=== PATIENT | female | born 1985 ===

== ENCOUNTER → 2016-10-14 | Outpatient (CLI) | payer OTHER, BC ==
--- NOTE | 2016-10-15 19:16 | CT ---
EXAM DATE: 10/14/16 PATIENT'S AGE: 30 Patient: PHILIP DWYER Facility: [place], [place] Site . Site : 1985 Study: CT Sinus WO CONT [id number] 1:54:15 PM Ordering Physician: Gerson Bergeron Final Report: INDICATION: Chronic sinusitis. Technique: Computed tomography of the paranasal sinuses was performed without intravenous contrast. Comparison: None Findings: The frontal sinuses appear hypoplastic. A mucous retention cyst is seen within the posterior left maxillary sinus, which does not appear obstructive. Remainder the paranasal sinuses appear well-aerated. No air-fluid levels are present. There is mild coaptation of the left infundibulum. The nasal septum is mildly deviated to the right. The nasal cavity appears well aerated. The temporomandibular joints articulate normally. The mastoid air cells appear well- aerated. The orbital contents are grossly unremarkable. Bilateral palatine tonsillar calcifications are consistent with remote infection. Impression : 1. A mucous retention cyst is seen within the posterior left maxillary sinus, which does not appear obstructive. Remainder the paranasal sinuses appear well- aerated. 2. No air-fluid levels are present. Dictated by Dl Rodriguez MD @ Oct 15 2016 1:28PM (Electronic Signature) Report Signed by Proxy and Original Signed Document filed in the Medical Record. MTDD
== END ==
LOC: MW.DI 12:48
PROVIDERS: ATTEND Otolaryngology Otolaryngology/Facial Plastic Surgery
DX: J32.9 Chronic sinusitis, unspecified (principal)
CPT/HCPCS: 70486; 70486-26

== ENCOUNTER 2020-05-23 11:20 | Emergency (ER) | payer OTHER ==
[2020-05-23] MEDS ORDERED: Sodium Chloride 0.9% 10 ML SDV IV PRN (11:30)
[2020-05-23] MEDS ORDERED: Sodium Chloride 0.9% 10 ML Syringe FLUSH PRN (11:30)
[2020-05-23] MEDS ORDERED: Sodium Chloride 0.9% 2.5 ML Syringe FLUSH PRN (11:30)
--- NOTE | 2020-05-23 11:37 | EDM.PDOC ---
ED HPI GENERAL MEDICAL PROBLEM - General Chief Complaint: Neuro Symptoms/Deficits Stated Complaint: MEDICAL CLEARANCE Time Seen by Provider: 05/23/20 11:22 - History of Present Illness INITIAL COMMENTS - FREE TEXT/NARRATIVE: History of present illness: Patient presents with an acute altered mental status that began approximately 1030 this morning while at work. She seems to be confused and unable to find the correct words or interact appropriately she has never had anything like this before she denies any headache no chest pain or trouble breathing she is brought to the emergency department by her who is concerned that she is definitely confused and not acting like herself. She has a history of depression and takes Effexor no other medical problems no prior incidence of this type nothing seems to make it better or worse blood glucose on arrival to the ED was 103 stroke code was called Review of systems: As per history of present illness and below otherwise all systems reviewed and negative. Past medical history: As per history of present illness and as reviewed below otherwise noncontributory. Surgical history: As per history of present illness and as reviewed below otherwise noncontributory. Social history: No reported history of drug or alcohol abuse. Family history: As per history of present illness and as reviewed below otherwise noncontributory. Physical exam: HEENT: Atraumatic, normocephalic, pupils reactive, negative for conjunctival pallor or scleral icterus, mucous membranes moist, throat clear, neck supple, nontender, trachea midline. Lungs: Clear to auscultation, breath sounds equal bilaterally, chest nontender. Heart: S1S2, regular, negative for clicks, rubs, or JVD. Abdomen: Soft, nondistended, nontender. Negative for masses or hepatosplenomegaly. Negative for costovertebral tenderness. Pelvis: Stable nontender. Genitourinary: Deferred. Rectal: Deferred. Extremities: Atraumatic, negative for cords or calf pain. Neurovascular unremarkable. Neuro: Awake, alert, oriented. Cranial nerves II through XII unremarkable. Cerebellum unremarkable. Motor and sensory unremarkable throughout. Exam nonfocal. While she is alert and oriented she is answering with unusual answers for instance when asked what day it is she states that it is homecoming while it is homecoming but the appropriate answer would have been Tuesday. Slow to answer questions. There is a mild right pronator drift Diagnostics: [] Therapeutics: [] Impression: Altered mental status possible acute CVA [] Plan: Stroke code reevaluate admit to the hospital [] Definitive disposition and diagnosis as appropriate pending reevaluation and review of above. - Related Data Allergies Allergy/AdvReac Type Severity Reaction Status Date / Time No Known Allergies Allergy Verified 05/23/20 11:29 Home Meds: Home Meds Venlafaxine [Effexor] 75 mg PO DAILY 05/23/20 [History] ED ROS GENERAL - Review of Systems Review Of Systems: See Below ED EXAM, GENERAL - Physical Exam Exam: See Below #1 Interpretation EKG Interpretation Comments: EKG is normal sinus rhythm rate of 80 bpm no specific ischemia normal axis read and interpreted by me Course - Vital Signs Text/Narrative:: At 145 I discussed the case with Dr. Gamboa where she will admit the patient telemetry obs CT CT angio were negative patient is somewhat improving but still seems to be not quite right cognitively agrees. She will be admitted to the hospital for further evaluation. Last Recorded V/S: Last Vital Signs Temp 36.1 C 05/23/20 11:27 Pulse 79 05/23/20 12:52 Resp 16 05/23/20 12:52 BP 124/68 05/23/20 12:52 Pulse Ox 98 05/23/20 12:52 - Orders/Labs/Meds Orders: Active Orders 24 hr Category Date Time Status Patient Status [ADT] Routine ADT 05/23/20 13:49 Active Assess Neurological Status [RC] ASDIRECTED Care 05/23/20 11:30 Active Bedrest [RC] ASDIRECTED Care 05/23/20 11:30 Active Cardiac Monitoring [RC] . DIRECTED Care 05/23/20 11:30 Active EKG Documentation Completion [RC] STAT Care 05/23/20 11:30 Active Height and Weight [RC] UPON Care 05/23/20 11:30 Active Initiate Acute Stroke Protocol [RC] STAT Care 05/23/20 11:30 Active NIH Stroke Scale [RC] ASDIRECTED Care 05/23/20 11:30 Active Nursing Bedside Swallow Screen [RC] ASDIRECTED Care 05/23/20 11:30 Active Oxygen Therapy [RC] ASDIRECTED Care 05/23/20 11:30 Active Stroke Education, General [RC] Click to Edit Care 05/23/20 11:30 Active Vital Signs [RC] Q1H Care 05/23/20 11:30 Active Brain w wo Cont [MR] Stat Exams 05/23/20 13:47 Ordered Aspirin Med 05/23/20 13:58 Once 324 mg PO ONETIME ONE Sodium Chloride 0.9% [Saline Flush] Med 05/23/20 11:30 Active 10 ml FLUSH ASDIRECTED PRN Sodium Chloride 0.9% [Saline Flush] Med 05/23/20 11:30 Active 2.5 ml FLUSH ASDIRECTED PRN Peripheral IV Insertion Adult [OM.PC] Stat Oth 05/23/20 11:30 Ordered Peripheral IV Insertion Adult [OM.PC] Stat Oth 05/23/20 11:30 Ordered Resuscitation Status Stat Resus Stat 05/23/20 11:30 Ordered Medication Orders Sodium Chloride (Saline Flush) 10 ml FLUSH ASDIRECTED PRN PRN Reason: Keep Vein Open Last Admin: 05/23/20 12:06 Dose: 10 ml Documented by: [id number] Sodium Chloride (Saline Flush) 2.5 ml FLUSH ASDIRECTED PRN PRN Reason: Keep Vein Open Last Admin: 05/23/20 12:06 Dose: 2.5 ml Documented by: [id number] Labs: Laboratory Tests 05/23/20 05/23/20 05/23/20 Range/Units 11:56 12:05 12:05 WBC 8.93 (4.0-11.0) K/uL RBC 3.85 L (4.30-5.90) M/uL Hgb 12.5 (12.0-16.0) g/dL Hct 36.9 (36.0-46.0) % MCV 95.8 (80.0-98.0) fL MCH 32.5 H (27.0-32.0) pg MCHC 33.9 (31.0-37.0) g/dL RDW Std Deviation 41.9 (28.0-62.0) fl RDW Coeff of Genaro 12 (11.0-15.0) % Plt Count 335 (150-400) K/uL MPV 9.40 (7.40-12.00) fL Neut % (Auto) 59.1 (48.0-80.0) % Lymph % (Auto) 30.1 (16.0-40.0) % [place] % (Auto) 7.4 (0.0-15.0) % Eos % (Auto) 2.8 (0.0-7.0) % Baso % (Auto) 0.6 (0.0-1.5) % Neut # (Auto) 5.3 (1.4-5.7) K/uL Lymph # (Auto) 2.7 H (0.6-2.4) K/uL Z[place]ata # (Auto) 0.7 (0.0-0.8) K/uL Eos # (Auto) 0.3 (0.0-0.7) K/uL Baso # (Auto) 0.1 (0.0-0.1) K/uL Nucleated RBC % 0.0 /100WBC Nucleated RBCs # 0 K/uL INR 0.98 APTT 24.3 (18.6-31.3) SEC Sodium (136-145) mmol/L Potassium (3.5-5.1) mmol/L Chloride (98-107) mmol/L Carbon Dioxide (21.0-32.0) mmol/L BUN (7.0-18.0) mg/dL Creatinine (0.6-1.0) mg/dL Est Cr Clr Drug Dosing mL/min Estimated GFR (MDRD) ml/min Glucose (74-106) mg/dL Calcium (8.5-10.1) mg/dL Total Bilirubin (0.2-1.0) mg/dL AST (15-37) IU/L ALT (14-63) IU/L Alkaline Phosphatase (46-116) U/L Troponin I (0.000-0.056) ng/mL Total Protein (6.4-8.2) g/dL Albumin (3.4-5.0) g/dL Globulin (2.6-4.0) g/dL Albumin/Globulin Ratio (0.9-1.6) TSH 3rd Generation (0.36-3.74) uIU/mL HCG, Qual (NEG) Urine Opiates Screen NEGATIVE (NEGATIVE) Ur Oxycodone Screen NEGATIVE (NEGATIVE) Urine Methadone Screen NEGATIVE (NEGATIVE) Ur Barbiturates Screen NEGATIVE (NEGATIVE) Ur Phencyclidine Scrn NEGATIVE (NEGATIVE) Ur Amphetamine Screen NEGATIVE (NEGATIVE) U Methamphetamines Scrn NEGATIVE (NEGATIVE) U Benzodiazepines Scrn NEGATIVE (NEGATIVE) U Cocaine Metab Screen NEGATIVE (NEGATIVE) U Marijuana (THC) Screen NEGATIVE (NEGATIVE) Ethyl Alcohol mg/dL 05/23/20 05/23/20 Range/Units 12:05 12:05 WBC (4.0-11.0) K/uL RBC (4.30-5.90) M/uL Hgb (12.0-16.0) g/dL Hct (36.0-46.0) % MCV (80.0-98.0) fL MCH (27.0-32.0) pg MCHC (31.0-37.0) g/dL RDW Std Deviation (28.0-62.0) fl RDW Coeff of Genaro (11.0-15.0) % Plt Count (150-400) K/uL MPV (7.40-12.00) fL Neut % (Auto) (48.0-80.0) % Lymph % (Auto) (16.0-40.0) % Zapata % (Auto) (0.0-15.0) % Eos % (Auto) (0.0-7.0) % Baso % (Auto) (0.0-1.5) % Neut # (Auto) (1.4-5.7) K/uL Lymph # (Auto) (0.6-2.4) K/uL Zapata # (Auto) (0.0-0.8) K/uL Eos # (Auto) (0.0-0.7) K/uL Baso # (Auto) (0.0-0.1) K/uL Nucleated RBC % /100WBC Nucleated RBCs # K/uL INR APTT (18.6-31.3) SEC Sodium 141 (136-145) mmol/L Potassium 3.7 (3.5-5.1) mmol/L Chloride 105 (98-107) mmol/L Carbon Dioxide 28.3 (21.0-32.0) mmol/L BUN 13 (7.0-18.0) mg/dL Creatinine 1.0 (0.6-1.0) mg/dL Est Cr Clr Drug Dosing 84.10 mL/min Estimated GFR (MDRD) > 60.0 ml/min Glucose 102 (74-106) mg/dL Calcium 9.1 (8.5-10.1) mg/dL Total Bilirubin 0.2 (0.2-1.0) mg/dL AST 17 (15-37) IU/L ALT 22 (14-63) IU/L Alkaline Phosphatase 71 (46-116) U/L Troponin I < 0.050 (0.000-0.056) ng/mL Total Protein 7.1 (6.4-8.2) g/dL Albumin 4.0 (3.4-5.0) g/dL Globulin 3.1 (2.6-4.0) g/dL Albumin/Globulin Ratio 1.3 (0.9-1.6) TSH 3rd Generation 1.21 (0.36-3.74) uIU/mL HCG, Qual NEGATIVE (NEG) Urine Opiates Screen (NEGATIVE) Ur Oxycodone Screen (NEGATIVE) Urine Methadone Screen (NEGATIVE) Ur Barbiturates Screen (NEGATIVE) Ur Phencyclidine Scrn (NEGATIVE) Ur Amphetamine Screen (NEGATIVE) U Methamphetamines Scrn (NEGATIVE) U Benzodiazepines Scrn (NEGATIVE) U Cocaine Metab Screen (NEGATIVE) U Marijuana (THC) Screen (NEGATIVE) Ethyl Alcohol < 3.0 mg/dL Meds: Medications Generic Name Dose Route Start Last Admin Trade Name Freq PRN Reason Stop Dose Admin Sodium Chloride 10 ml 05/23/20 11:30 05/23/20 12:06 Saline Flush FLUSH 10 ml ASDIRECTED PRN Administration Keep Vein Open Sodium Chloride 2.5 ml 05/23/20 11:30 05/23/20 12:06 Saline Flush FLUSH 2.5 ml ASDIRECTED PRN Administration Keep Vein Open Discontinued Medications Generic Name Dose Route Start Last Admin Trade Name Freq PRN Reason Stop Dose Admin Iopamidol 100 ml 05/23/20 12:56 05/23/20 12:57 Isovue Multipack-370 (76%) IVPUSH 05/23/20 12:57 100 ml ONETIME ONE Administration Lorazepam 1 mg 05/23/20 12:05 05/23/20 12:08 Ativan IVPUSH 05/23/20 12:06 1 mg ONETIME ONE Administration Lorazepam Confirm 05/23/20 12:07 05/23/20 12:10 Ativan Administered 05/23/20 12:08 Not Given Dose 2 mg .ROUTE .STK-MED ONE Sodium Chloride 10 ml 05/23/20 11:30 Normal Saline IV ASDIRECTED PRN IV Use Departure - Departure Time of Disposition: 13:45 Disposition: Refer to Observation Condition: Good Clinical Impression: Altered mental status - Discharge Information *PRESCRIPTION DRUG MONITORING PROGRAM REVIEWED*: Not Applicable *COPY OF PRESCRIPTION DRUG MONITORING REPORT IN PATIENT GILDA: Not Applicable Referrals: PCP,None [Primary Care Provider] - Forms: ED Department Discharge Sepsis Event Note (ED) - Evaluation Sepsis Screening Result: No Definite Risk - Focused Exam Vital Signs: Vital Signs Temp Pulse Resp BP Pulse Ox 05/23/20 12:52 79 16 124/68 98 05/23/20 11:27 36.1 C 76 16 131/80 97 - My Orders Last 24 Hours: My Active Orders 05/23/20 11:30 Assess Neurological Status [RC] ASDIRECTED Bedrest [RC] ASDIRECTED Cardiac Monitoring [RC] . DIRECTED EKG Documentation Completion [RC] STAT Height and Weight [RC] UPON Initiate Acute Stroke Protocol [RC] STAT NIH Stroke Scale [RC] ASDIRECTED Nursing Bedside Swallow Screen [RC] ASDIRECTED Oxygen Therapy [RC] ASDIRECTED Stroke Education, General [RC] Click to Edit Vital Signs [RC] Q1H Sodium Chloride 0.9% [Saline Flush] 10 ml FLUSH ASDIRECTED PRN Sodium Chloride 0.9% [Saline Flush] 2.5 ml FLUSH ASDIRECTED PRN Peripheral IV Insertion Adult [OM.PC] Stat Peripheral IV Insertion Adult [OM.PC] Stat Resuscitation Status Stat 05/23/20 13:47 Brain w wo Cont [MR] Stat 05/23/20 13:49 Patient Status [ADT] Routine 05/23/20 13:58 Aspirin 324 mg PO ONETIME ONE - Assessment/Plan Last 24 Hours: My Active Orders 05/23/20 11:30 Assess Neurological Status [RC] ASDIRECTED Bedrest [RC] ASDIRECTED Cardiac Monitoring [RC] . DIRECTED EKG Documentation Completion [RC] STAT Height and Weight [RC] UPON Initiate Acute Stroke Protocol [RC] STAT NIH Stroke Scale [RC] ASDIRECTED Nursing Bedside Swallow Screen [RC] ASDIRECTED Oxygen Therapy [RC] ASDIRECTED Stroke Education, General [RC] Click to Edit Vital Signs [RC] Q1H Sodium Chloride 0.9% [Saline Flush] 10 ml FLUSH ASDIRECTED PRN Sodium Chloride 0.9% [Saline Flush] 2.5 ml FLUSH ASDIRECTED PRN Peripheral IV Insertion Adult [OM.PC] Stat Peripheral IV Insertion Adult [OM.PC] Stat Resuscitation Status Stat 05/23/20 13:47 Brain w wo Cont [MR] Stat 05/23/20 13:49 Patient Status [ADT] Routine 05/23/20 13:58 Aspirin 324 mg PO ONETIME ONE
--- NOTE | 2020-05-23 12:02 | CT ---
INDICATION: Clinical signs and symptoms of stroke COMPARISON: Minute portions of an MRI dated September 09, 2017. TECHNIQUE: CT examination of the head was performed as axial sections without intravenous contrast. Images were obtained from the vertex of the skull through the skull base. Please note that all CT scans at this facility use dose modulation, iterative reconstruction, and/or weight-based dosing when appropriate to reduce radiation dose to as low as reasonably achievable. FINDINGS: The brain shows no sign of mass lesion, mass effect, hemorrhage, or edema. The ventricles and sulci are normal in appearance for the patient`s age. The visualized portions of the orbits are normal in appearance. The osseous structures are normal in their appearance with no sign of abnormality in the skull base or calvarium. IMPRESSION: Normal unenhanced head CT. Please note that all CT scans at this facility use dose modulation, iterative reconstruction, and/or weight-based dosing when appropriate to reduce radiation dose to as low as reasonably achievable. Dictated by Rob Jin MD @ May 23 2020 11:58AM Signed by Dr. Rob Jin @ May 23 2020 12:00PM
[2020-05-23] MEDS ORDERED: LORazepam 2 MG/ML SDV IVPUSH ONE (12:05)
[2020-05-23] MEDS ORDERED: LORazepam 2 MG/ML SDV ONE (12:07)
[2020-05-23] MEDS ORDERED: Iopamidol 755 MG/ML 500 ML Multipack Bottle IVPUSH ONE (12:56)
[2020-05-23 12:59] LABS: BLOOD UREA NITROGEN,BUN 13 mg/dL (7.0-18.0); CARBON DIOXIDE,CO2 28.3 mmol/L (21.0-32.0); CHLORIDE,CL 105 mmol/L (98-107); GLUCOSE RANDOM 102 mg/dL (74-106); POTASSIUM,K 3.7 mmol/L (3.5-5.1); SODIUM,NA 141 mmol/L (136-145)
--- NOTE | 2020-05-23 13:22 | CT ---
CT HEAD DATE: 05/23/2020 CLINICAL HISTORY: Patient with focal neurological deficits. TECHNIQUE: Standard CT scanning of the head was performed. COMPARISON: None. FINDINGS: There is no intracranial hemorrhage. The leach matter-white matter differentiation is intact. The size of the ventricular system is normal for age. There is no mass effect or midline shift. The calvarium is unremarkable. The orbits are unremarkable. The paranasal sinuses demonstrate mild left maxillary sinus mucosal thickening. The mastoid air cells are unremarkable. The soft tissues are unremarkable. IMPRESSION: Normal head CT. Please note that all CT scans at this facility use dose modulation, iterative reconstruction, and/or weight-based dosing when appropriate to reduce radiation dose to as low as reasonably achievable. Dictated by: Salena Peña MD @ 05/23/2020 13:20:10 (Electronically Signed)
--- NOTE | 2020-05-23 13:26 | CT ---
CT ANGIOGRAM HEAD AND NECK DATE: 05/23/2020 CLINICAL HISTORY: Patient with focal neurological deficits. TECHNIQUE: Standard helical CT image acquisition through the head and neck was performed after intravenous contrast bolus enhancement. Multiplanar reconstructed images were performed and interpreted. COMPARISON: CT same day. FINDINGS: The origins of the great vessels from the aortic arch are patent. The origin of the right vertebral artery is patent. The origin of the left vertebral artery is patent. The common carotid arteries are patent There is no stenosis at the origin of the right internal carotid artery. There is no stenosis at the origin of the left internal carotid artery. The rest of the cervical segments of the internal carotid arteries are patent up to their intracranial segments. The intracranial segments of the internal carotid arteries are patent. The vertebral arteries are codominant. The cervical segments of the vertebral arteries are patent. The intracranial segments of the vertebral arteries are patent. The middle cerebral arteries are normal without aneurysm or proximal occlusion identified. The anterior cerebral arteries are normal without aneurysm or proximal occlusion identified. The anterior communicating artery is well visualized and appears normal. The basilar artery is normal without aneurysm or occlusion. The posterior cerebral arteries are normal without aneurysm or proximal occlusion. There is normal opacification of major intracranial venous structures. The visualized lung apices are unremarkable The thyroid gland is unremarkable. The soft tissues of the neck are unremarkable. There are degenerative changes in the cervical spine. IMPRESSION: Normal CT angiogram of the head and neck. Please note that all CT scans at this facility use dose modulation, iterative reconstruction, and/or weight-based dosing when appropriate to reduce radiation dose to as low as reasonably achievable. Dictated by: Salena Peña MD @ 05/23/2020 13:25:04 (Electronically Signed)
--- NOTE | 2020-05-23 13:40 | CR ---
INDICATION: Acute stroke COMPARISON: None TECHNIQUE: Single-view portable AP upright chest radiograph FINDINGS: TUBES AND LINES: None. HEART AND MEDIASTINUM: The heart size is normal. The mediastinal contour appears normal for patient age. LUNGS AND PLEURAL SPACES: The lungs appear normal.There pleural spaces are unremarkable. OSSEOUS STRUCTURES: Age-appropriate appearance. No acute focal finding. IMPRESSION: No evidence of active pulmonary disease. Dictated by Rob Jin MD @ May 23 2020 1:39PM Signed by Dr. Rob Jin @ May 23 2020 1:40PM
[2020-05-23] MEDS ORDERED: Aspirin 81 MG Tab.Chew PO ONE (13:58)
== END 2020-05-23 15:00 | disposition other institution (70) ==
LOC: MW.ED 11:20
DX: R41.82 Altered mental status, unspecified (principal); F32.9 Major depressive disorder, single episode, unspecified; Z79.899 Other long term (current) drug therapy
CPT/HCPCS: 70450; 70496; 70498; 71045; 80053; 80305; 80307; 82962; 84443; 84484; 84703; 85025; 85610; 85730; 93005; 96374; 99285; J2060; Q9967; 93010

== ENCOUNTER 2020-05-23 15:55 | Emergency (ER) | payer OTHER ==
--- NOTE | 2020-05-23 17:20 | EDM.PDOC ---
ED HPI GENERAL MEDICAL PROBLEM - General Chief Complaint: Neuro Symptoms/Deficits Stated Complaint: POSSIBLE STROKE VICTIM Time Seen by Provider: 05/23/20 16:13 - History of Present Illness INITIAL COMMENTS - FREE TEXT/NARRATIVE: History of present illness: Patient literally was admitted to the hospital and the hospitalist was here to see them when they decided they wanted to leave they were gone for a total of 30 minutes when they returned with the in 1 to be readmitted. The patient seems to be anxious and is frustrated and does not want to stay however she is obviously altered still and the wanted her to be further evaluated as planned. She is now agreeing to stay in the hospital no new complaints no new events see prior note for details Review of systems: As per history of present illness and below otherwise all systems reviewed and negative. Past medical history: As per history of present illness and as reviewed below otherwise noncontributory. Surgical history: As per history of present illness and as reviewed below otherwise noncontributory. Social history: No reported history of drug or alcohol abuse. Family history: As per history of present illness and as reviewed below otherwise noncontributory. Physical exam: HEENT: Atraumatic, normocephalic, pupils reactive, negative for conjunctival pallor or scleral icterus, mucous membranes moist, throat clear, neck supple, nontender, trachea midline. Lungs: Clear to auscultation, breath sounds equal bilaterally, chest nontender. Heart: S1S2, regular, negative for clicks, rubs, or JVD. Abdomen: Soft, nondistended, nontender. Negative for masses or hepatosplenomegaly. Negative for costovertebral tenderness. Pelvis: Stable nontender. Genitourinary: Deferred. Rectal: Deferred. Extremities: Atraumatic, negative for cords or calf pain. Neurovascular unremarkable. Neuro: Awake, alert, oriented. Cranial nerves II through XII unremarkable. Cerebellum unremarkable. Motor and sensory unremarkable throughout. Exam nonfocal. Confused inappropriate answers to questions no ataxia there was a mild pronator drift on previous exam on the right Diagnostics: [] Therapeutics: [] Impression: Mental status rule out CVA [] Plan: Admit as planned priorly [] Definitive disposition and diagnosis as appropriate pending reevaluation and review of above. - Related Data Allergies Allergy/AdvReac Type Severity Reaction Status Date / Time No Known Allergies Allergy Verified 05/23/20 16:45 Home Meds: Home Meds Venlafaxine [Effexor] 75 mg PO DAILY 05/23/20 [History] Past Medical History - Past Health History Medical/Surgical History: Denies Medical/Surgical History Psychiatric History: Reports: Depression - Infectious Disease History Infectious Disease History: Reports: None Social & Family History - Family History Family Medical History: Noncontributory - Tobacco Use Tobacco Use Status *Q: Never Tobacco User - Caffeine Use Caffeine Use: Reports: Coffee - Recreational Drug Use Recreational Drug Use: No ED ROS GENERAL - Review of Systems Review Of Systems: See Below ED EXAM, GENERAL - Physical Exam Exam: See Below Course - Vital Signs Last Recorded V/S: Last Vital Signs Temp 36.6 C 05/23/20 16:46 Pulse 88 05/23/20 16:46 Resp 18 05/23/20 16:46 BP 147/96 H 05/23/20 16:46 Pulse Ox 98 05/23/20 16:46 - Orders/Labs/Meds Orders: Active Orders 24 hr Category Date Time Status Patient Status [ADT] Routine ADT 05/23/20 17:17 Ordered Brain wo Cont [MR] Stat Exams 05/23/20 17:16 Ordered CORONAVIRUS COVID-19 PCR [facility] Stat Lab 05/23/20 16:32 Ordered Departure - Departure Time of Disposition: 17:19 Disposition: Refer to Observation Condition: Good Clinical Impression: Altered mental status - Discharge Information *PRESCRIPTION DRUG MONITORING PROGRAM REVIEWED*: Not Applicable *COPY OF PRESCRIPTION DRUG MONITORING REPORT IN PATIENT GILDA: Not Applicable Referrals: PCP,None [Primary Care Provider] - Sepsis Event Note (ED) - Evaluation Sepsis Screening Result: No Definite Risk - Focused Exam Vital Signs: Vital Signs Temp Pulse Resp BP Pulse Ox 05/23/20 16:46 36.6 C 88 18 147/96 H 98 - My Orders Last 24 Hours: My Active Orders 05/23/20 16:32 CORONAVIRUS COVID-19 PCR PHL Stat 05/23/20 17:16 Brain wo Cont [MR] Stat 05/23/20 17:17 Patient Status [ADT] Routine - Assessment/Plan Last 24 Hours: My Active Orders 05/23/20 16:32 CORONAVIRUS COVID-19 PCR PH[facility] Stat 05/23/20 17:16 Brain wo Cont [MR] Stat 05/23/20 17:17 Patient Status [ADT] Routine
[2020-05-23] MEDS ORDERED: Acetaminophen 325 MG Tab PO PRN (17:43)
[2020-05-23] MEDS ORDERED: Albuterol/Ipratropium 3.0-0.5 MG/3 ML Neb Soln NEB PRN (17:43)
[2020-05-23] MEDS ORDERED: LORazepam 2 MG/ML SDV IVPUSH PRN ×2 (17:46→17:47)
[2020-05-23] MEDS ORDERED: Gadobenate Dimeglumine 529 MG/ML 20 ML SDV IVPUSH STA (18:01)
[2020-05-23 18:20] LABS: HEMOGLOBIN A1C 5.6 % (4.5-6.2)
--- NOTE | 2020-05-23 19:07 | PCM.HP.2 ---
H&P History of Present Illness - General Date of Service: 05/23/20 Admit Problem/Dx: Admission Diagnosis/Problem Admission Diagnosis/Problem Altered mental status - Related Data Allergies/Adverse Reactions: Allergies Allergy/AdvReac Type Severity Reaction Status Date / Time No Known Allergies Allergy Verified 05/23/20 16:45 Home Medications: Home Meds Venlafaxine [Effexor] 75 mg PO DAILY 05/23/20 [History] Past Medical History - Past Health History Medical/Surgical History: Denies Medical/Surgical History Psychiatric History: Reports: Depression - Infectious Disease History Infectious Disease History: Reports: None Social & Family History - Family History Family Medical History: Noncontributory - Tobacco Use Tobacco Use Status *Q: Never Tobacco User - Caffeine Use Caffeine Use: Reports: Coffee - Recreational Drug Use Recreational Drug Use: No Exam - Vital Signs Vital Signs: Last Vital Signs Temp 36.1 C 05/23/20 18:42 Pulse 76 05/23/20 18:42 Resp 14 05/23/20 18:42 BP 146/77 H 05/23/20 18:42 Pulse Ox 99 05/23/20 18:42 Weight: 90.718 kg - Patient Data Lab Results Last 24 hrs: Laboratory Results - last 24 hr 05/23/20 05/23/20 05/23/20 Range/Units 12:05 12:05 16:59 Hemoglobin A1c 5.6 (4.5-6.2) % Triglycerides 159 (0-200) mg/dL Cholesterol 155 (50-200) mg/dL LDL Cholesterol, Calc 86 (60-180) mg/dL VLDL Cholesterol 31 (5-55) mg/dL HDL Cholesterol 37 L (40-60) mg/dL Cholesterol/HDL Ratio 4.2 (3.3-6.0) TSH 3rd Generation 1.18 (0.36-3.74) uIU/mL SARS-CoV-2 RNA (YONI) NEGATIVE (NEGATIVE) Sepsis Event Note - Evaluation Sepsis Screening Result: No Definite Risk - Focused Exam Vital Signs: Vital Signs Temp Pulse Resp BP Pulse Ox 05/23/20 18:42 36.1 C 76 14 146/77 H 99 05/23/20 16:46 36.6 C 88 18 147/96 H 98 Orders Last 24hrs: Active Orders 24 hr Category Date Time Status Patient Status [ADT] Routine ADT 05/23/20 17:17 Active Ambulate [RC] ASDIRECTED Care 05/23/20 17:37 Active Blood Glucose Check, Bedside [RC] Q6H Care 05/23/20 17:43 Active Oxygen Therapy [RC] PRN Care 05/23/20 17:37 Active RT Aerosol Therapy [RC] ASDIRECTED Care 05/23/20 17:45 Active VTE/DVT Education [RC] PER UNIT ROUTINE Care 05/23/20 17:37 Active Vital Signs [RC] Q4H Care 05/23/20 17:37 Active Nothing per Oral Now Diet [DIET] Diet 05/23/20 Dinner Active Brain w wo Cont [MR] Stat Exams 05/23/20 17:16 Taken Acetaminophen [TylenoL] Med 05/23/20 17:43 Active 650 mg PO Q4H PRN Albuterol/Ipratropium [DuoNeb 3.0-0.5 MG/3 ML] Med 05/23/20 17:43 Active 3 ml NEB Q4HRRT PRN Aspirin Med 05/23/20 21:00 Active 81 mg PO BEDTIME LORazepam [Ativan] Med 05/23/20 17:46 Active 1 mg IVPUSH Q4H PRN LORazepam [Ativan] Med 05/23/20 17:47 Active 2 mg IVPUSH Q4H PRN Resuscitation Status Routine Resus Stat 05/23/20 17:37 Ordered Medication Orders Acetaminophen (Tylenol) 650 mg PO Q4H PRN PRN Reason: Pain (Mild 1-3)/fever Albuterol/Ipratropium (Duoneb 3.0-0.5 Mg/3 Ml) 3 ml NEB Q4HRRT PRN PRN Reason: Shortness Of Breath/wheezing Aspirin (Aspirin) 81 mg PO BEDTIME JOSE Lorazepam (Ativan) 1 mg IVPUSH Q4H PRN PRN Reason: Anxiety Lorazepam (Ativan) 2 mg IVPUSH Q4H PRN PRN Reason: Agitation
--- NOTE | 2020-05-23 19:34 | MR ---
Indication: Altered mental status. Technique: Performed before and after IV gadolinium. Contrast: 20 cc MultiHance. Comparison: None are available. Findings: No abnormal contrast enhancement involving the brain parenchyma, meninges, calvarium or skull base. No evidence for recent or remote infarct or hemorrhage. No intracranial mass effect. No ventricular obstruction. No signal changes in the brain parenchyma. Grossly normal flow voids are maintained in the directly imaged intracranial vascular structures. The craniovertebral junction is unremarkable, with a patent foramen magnum. Both temporal bones are clear. There is slight membrane thickening scattered in the paranasal sinuses. Impression: 1. The intracranial contents are negative. 2. Trace scattered paranasal sinus inflammatory change. Dictated by Bry Garcia MD @ May 23 2020 8:04PM Signed by Dr. Bry Garcia @ May 23 2020 8:10PM
[2020-05-23] MEDS ORDERED: Aspirin 81 MG Tab.Chew PO SCH (21:00)
--- NOTE | 2020-05-23 22:20 | PCM.SN.2 ---
- Free Text/Narrative Note: I came to the assess the patient in ER, patient states that she would like to go home and follow up with neurology on outpatient basis instead of being admitted, i recommended patient to stay overnight for observation but she was adamant. She was competent, was able to verbalize and understand the risk of leaving AMA after i explained to the same to her. She was hemodynamically stable during my evaluation ,no focal defects, not alerted, was ambulatory,no deficits on exam. MRI findings were discussed, patient verbalized understanding. She was instructed to come back if her symptoms recurred. F/U with neurology on outpatient basis. Patient signed AMA papers and left.
== END 2020-05-23 20:06 | disposition left against medical advice (07) ==
LOC: MW.ED 15:55 → MW.MS 17:17 → UNDOADMOB 17:17 → MW.ED 20:06
DX: R41.82 Altered mental status, unspecified (principal); F32.9 Major depressive disorder, single episode, unspecified; Z79.899 Other long term (current) drug therapy; Z20.828 Contact with and (suspected) exposure to other viral communicable diseases
CPT/HCPCS: 36415; 70553; 80061; 83036; 84443; 87635; 96374; 99285; A9270; A9577; J2060; U0002